=== PATIENT | male | born 1975 | race Hispanic/Latino ===

== ENCOUNTER 2022-11-23 15:09 | Emergency (ER) | payer BC, SELFPAY ==
--- NOTE | ~2022-11-23 | XR_ITS ---
XR finger 5th RT min 2V DATE: 11/23/2022 18:52 INDICATION: Post- reduction examination TECHNIQUE: Single AP view per referring physician request COMPARISON: 11/23/2022 right fifth digit FINDINGS: There is persistent approximately 1.8 mm lateral displacement at the transverse metaphyseal fracture of the proximal phalanx. Fracture is comminuted, with intra-articular extension at the fift h metacarpophalangeal joint. IMPRESSION: No apparent change in position or alignment post reduction Reviewed, dictated and finalized at location A.
--- NOTE | ~2022-11-23 | XR_ITS ---
XR finger 5th RT min 2V DATE: 11/23/2022 15:28 INDICATION: Dumbbell fell on finger. Fifth digit pain. TECHNIQUE: 3 views COMPARISON: None FINDINGS: There is a comminuted intra-articular fracture of the base and metaphysis of the proximal p halanx with mild anterolateral displacement. There is a vertical fracture line extending into the fif th metacarpophalangeal joint with minimal if any displacement at the articular surface the base of th e proximal phalanx. No other fracture or dislocation. IMPRESSION: Comminuted intra-articular fracture of the base and metaphysis of the proximal phalanx of the fifth digit Reviewed, dictated and finalized at location A. IMPRESSION: Comminuted intra-articular fracture of the base and metaphysis of t he proximal phalanx of the fifth digit
[2022-11-23 15:13] VITALS: BP 176/93; PULSE 104; RESP 15; TEMP 36.8; O2SAT 99
[2022-11-23] MEDS: HYDROcodone/acetaminophen (*CRX) 5-325 MG TABLET 1 TAB PO (17:37)
--- NOTE | 2022-11-23 17:39 | ED.UPPEXIN ---
HPI - Extremity Injury (Upper) General Chief Complaint: Extremity Injury, Upper Stated Complaint: finger injury Time Seen by Provider: 11/23/22 17:11 Source: patient Mode of arrival: ambulatory Limitations: no limitations History of Present Illness HPI narrative: This is a 47 year old male that presents to the ER for right hand injury sustained just prior to arrival. Reports he was at the gym and a weight was going to fall off the bench. He attempted to catch the weight sustaining an injury to his right 5th finger. Reports decreased range of motion and pain to the area. Denies numbness. Related Data Allergies Allergy/AdvReac Type Severity Reaction Status Date / Time oxytetracycline Allergy Unknown Verified 11/23/22 19:17 [From Terramycin] Review of Systems Review of Systems: CONSTITUTIONAL: Denies fever MUSCULOSKELETAL: Reports joint pain, and myalgia. NEUROLOGIC: Denies numbness All systems reviewed & are unremarkable except as noted in HPI and below PMFSH Past Medical History Medical History (Updated 11/23/22 @ 19:18 by Juani Cordero PA-C) History of hypertension Social History Social History (Updated 11/23/22 @ 17:44 by Juani Cordero PA-C) Smoking status: Never smoker Exam Narrative: GENERAL: Well-appearing, well-nourished, and in no acute distress. HEAD: Normocephalic, atraumatic. EYES: EOMI. EXTREMITIES: Normal range of motion, except decreased ROM in the right fifth finger. Mild edema about right 5th finger proximal phalanx. Normal radial pulse. Normal capillary refill, normal sensation SKIN: Warm, dry, no rash. NEURO: No focal deficits. Alert and oriented x3. PSYCH: Normal mood and affect Course Course Emergency Course: Patient agrees with plan of care Vital Signs Vital signs: Vital Signs Temperature 98.3 F 11/23/22 15:13 Pulse Rate 104 H 11/23/22 15:13 Respiratory Rate 15 11/23/22 15:13 Blood Pressure 176/93 H 11/23/22 15:13 Pulse Oximetry 99 11/23/22 15:13 Oxygen Delivery Room Air 11/23/22 15:13 Temperature 98.3 F 11/23/22 15:13 Pulse Rate 104 H 11/23/22 15:13 Respiratory Rate 15 11/23/22 15:13 Blood Pressure 176/93 H 11/23/22 15:13 Pulse Oximetry 99 11/23/22 15:13 Oxygen Delivery Room Air 11/23/22 15:13 Procedures Orthopedic Splinting/Casting Injury #1: Splinting/Casting Date: 11/23/22 Splinting/Casting Time: 19:16 Side: right Upper Extremity Injury Location: finger Splint: customized in ED OCL: ulnar gutter Pre-Procedure Neuro Vascular Exam: normal Post-Procedure Neuro Vascular Exam: normal MDM - Extremity Injury (Upper) MDM Narrative Medical decision making narrative: Patient presents to the emergency department for right hand injury sustained just prior to arrival. He is neurovascularly intact. Right 5th finger x-ray shows a comminuted intra-articular fracture of the base and metaphysis of the proximal phalanx. Patient placed in an ulnar gutter splint. He is visiting from out of town. Was instructed he should have follow-up with a hand surgeon back home. He was given warnings to return to the ER Differential Diagnosis Differential diagnosis: Likely finger sprain, dislocation of finger, fracture of hand and other (finger fracture) Imaging Data Radiologist's impression: ITS Impressions Finger X-Ray 11/23/22 15:30 IMPRESSION: Comminuted intra-articular fracture of the base and metaphysis of the proximal phalanx of the fifth digit Finger X-Ray 11/23/22 19:04 IMPRESSION: No apparent change in position or alignment post reduction Critical Care Time Critical Care Time Critical Care Time: No Discharge Plan Discharge Clinical Impression: Finger fracture, right Qualifiers: Encounter type: initial encounter Finger: little finger Fracture type: closed Phalanx: proximal Fracture alignment: displaced Qualified Code(s): S62.616A - Di
[2022-11-23] MEDS: KETOROLAC 30 MG/ML VIAL (*BKC) IM (17:40)
== END 2022-11-23 19:36 | disposition home or self-care (01) ==
PROVIDERS: Emergency Provider Physician Assistant
DX: S62.616A Displaced fracture of proximal phalanx of right little finger, initial encounter for closed fracture (principal); I10 Essential (primary) hypertension; W20.8XXA Other cause of strike by thrown, projected or falling object, initial encounter
CPT/HCPCS: 26725; 26770; 29125; 29130; 73140; 96372; 99284; 99285; A9270; J1885